=== PATIENT | female | born 2000 | race African-American/Black ===

== ENCOUNTER 2020-10-06 11:23 | Emergency (ER) | payer MEDICAID ==
[~2020-10-06] VITALS: Ht 170.2 cm; Wt 65.0 kg
[2020-10-06 11:32] VITALS: BP 148/94
[2020-10-06] MEDS ORDERED: CEPH500T MT (12:20)
[2020-10-06] MEDS ORDERED: MUPI15CR11 TP (12:20)
[2020-10-06] MEDS ORDERED: VALA10002 MT (12:20)
== END 2020-10-06 12:35 | disposition home or self-care (01) ==
LOC: ER 11:23
DX: J06.9 Acute upper respiratory infection, unspecified (principal)
CPT/HCPCS: 71045; 99283